=== PATIENT | female | born 1995 | race Caucasian/White ===

== ENCOUNTER → 2018-02-09 | Outpatient (CLI) | payer BC ==
[~2018-02-09] MED LIST: BIRTH CONTROL PO; NAPR220C2 PO
== END | disposition home or self-care (01) ==
LOC: STAR 08:58
PROVIDERS: ATTEND Orthopaedic Surgery
DX: Z02.9 Encounter for administrative examinations, unspecified (principal)

== ENCOUNTER 2018-02-15 05:11 | Day surgery (SDC) | payer BC ==
[2018-02-09 09:16] VITALS: BP 127/83
[~2018-02-15] VITALS: Ht 167.6 cm; Wt 58.8 kg
[2018-02-15] MEDS ORDERED: LACTATED RINGERS 1,000 ML IV SCH (05:56)
[2018-02-15 06:00] VITALS: BP 127/83
[2018-02-15] MEDS ORDERED: LIDOCAINE-MPF 1%, 2ML INFIL ONE (06:00)
[2018-02-15] MEDS ORDERED: LIDOCAINE-MPF 1%, 2ML ONE (06:06)
[2018-02-15] MEDS ORDERED: LIDOCAINE 1%-EPI 1:100K, 30ML ONE (06:10)
[2018-02-15] MEDS ORDERED: ROPIvacaine/PF 0.5%, 30 ML ONE (06:10)
[2018-02-15 06:33] LABS: HCG UR SG 1.027 (1.003-1.030)
[2018-02-15] MEDS ORDERED: PROPOFOL 50 ML ONE (06:35)
[2018-02-15] MEDS ORDERED: MIDAZOLAM 1 MG/ML, 2ML ONE (06:35)
[2018-02-15] MEDS ORDERED: FENTANYL PF 250 MCG/5ML ONE (06:36)
[2018-02-15] MEDS ORDERED: ACETAMINOPHEN 500 MG TABLET PO ONE (07:00)
[2018-02-15] MEDS ORDERED: OxyconTIN ER 20 MG TAB.ER PO ONE (07:00)
[2018-02-15] MEDS ORDERED: GABAPENTIN 300 MG CAPSULE PO ONE (07:00)
[2018-02-15] MEDS ORDERED: ONDANSETRON ODT 8 MG PO ONE (07:00)
[2018-02-15] MEDS ORDERED: DEXAMETHASONE 4 MG/ML, 1ML ONE ×2 (07:06→07:28)
[2018-02-15] MEDS ORDERED: CEFAZOLIN 1,000 MG ONE (07:28)
[2018-02-15] MEDS ORDERED: FENTANYL PF 100 MCG/2ML IV PRN (07:30)
[2018-02-15] MEDS ORDERED: MORPHINE SULFATE 4 MG/ML, 1ML IVPush PRN (07:30)
[2018-02-15] MEDS ORDERED: MIDAZOLAM 1 MG/ML, 2ML IV PRN (07:30)
[2018-02-15] MEDS ORDERED: PROMETHAZINE 12.5 MG SUPP PR PRN (07:30)
[2018-02-15] MEDS ORDERED: DIPHENHYDRAMINE 50 MG/ML, 1ML IVPush PRN (07:30)
[2018-02-15] MEDS ORDERED: ONDANSETRON ODT 8 MG PO PRN (07:30)
[2018-02-15] MEDS ORDERED: PROMETHAZINE 25 MG/ML, 1ML IV PRN (07:30)
[2018-02-15] MEDS ORDERED: MEPERIDINE/PF 25MG/0.5ML IVPush PRN (07:30)
[2018-02-15] MEDS ORDERED: EPHEDRINE 50 MG/ML, 1ML IM PRN (07:30)
[2018-02-15] MEDS ORDERED: PROMETHAZINE 25 MG SUPP PR PRN (07:30)
[2018-02-15] MEDS ORDERED: OXYcodone 5 MG/5 ML ORAL.SOL UDC PO PRN (07:30)
[2018-02-15] MEDS ORDERED: MEPERIDINE/PF 50 MG/ML ONE (08:25)
== END 2018-02-15 10:15 | disposition home or self-care (01) ==
LOC: OUT 05:11
PROVIDERS: ATTEND Orthopaedic Surgery
DX: S83.282A Other tear of lateral meniscus, current injury, left knee, initial encounter (principal); M65.862 Other synovitis and tenosynovitis, left lower leg; M94.262 Chondromalacia, left knee; X58.XXXA Exposure to other specified factors, initial encounter; Y93.89 Activity, other specified; Y92.89 Other specified places as the place of occurrence of the external cause; Y99.8 Other external cause status; Z88.0 Allergy status to penicillin; Z91.030 Bee allergy status; Z72.89 Other problems related to lifestyle
CPT/HCPCS: 29881; 81025; J0690; J1100; J2175; J2250; J2704; J2795; J3010; J3490; J7120; Q0162